=== PATIENT | female | born 2000 | race African-American/Black ===

== ENCOUNTER 2018-10-04 13:15 | Emergency (ER) | payer MEDICAID ==
--- NOTE | 2018-10-04 13:35 | ER Document Report ---
ED Medical Screen (RME) - General Chief Complaint: Abdominal Pain Stated Complaint: ABDOMINAL PAIN Time Seen by Provider: 10/04/18 13:31 - HPI Notes: 10/04/18 13:34 Patient is a 18-year-old female no significant past medical history who presents complaining of lower pelvic pains and nausea over the past 3 to 4 days. She has had some vaginal odor and discharge. No bleeding. Last menstrual period was the end of August. She is eating and drinking without difficulty, but does have decreased p.o. intake. She is urinating normally and having normal bowel movements. No surgical history to her abdomen. Denies SOTOMAYOR, fever, neck pain, URI, CP, SOB, dysuria, back pain, or rash. I have treated and performed a rapid initial assessment of this patient. A comprehensive ED assessment and evaluation of the patient, analysis of test results and completion of medical decision making process will be conducted by additional ED providers. PHYSICAL EXAMINATION: GENERAL: Well-appearing, well-nourished and in no acute distress. A&Ox4. Answers questions appropriately. LUNGS: Breath sounds clear to auscultation bilaterally and equal. No wheezes rales or rhonchi. HEART: Regular rate and rhythm without murmurs, rubs, gallops. ABDOMEN: Soft, nondistended abdomen. No guarding, no rebound. Normal bowel sounds present. No CVA tenderness bilaterally. + mild lower pelvic tenderness (cannot elicit thorough abd exam w/o bed, however). - Related Data Allergies/Adverse Reactions: Penicillins Allergy (Verified 10/04/18 13:23) Physical Exam - Vital signs Vitals: Temp Pulse Resp BP Pulse Ox 98.1 F 80 16 118/76 97 10/04/18 13:24 10/04/18 13:24 10/04/18 13:24 10/04/18 13:24 10/04/18 13:24 Course - Vital Signs Vital signs: Temp Pulse Resp BP Pulse Ox 98.1 F 80 16 118/76 97 10/04/18 13:24 10/04/18 13:24 10/04/18 13:24 10/04/18 13:24 10/04/18 13:24
[2018-10-04] MEDS ORDERED: ONDANSETRON 4 MG TAB.RAPDIS PO ONE (13:36)
[2018-10-04 14:17] LABS: ABSOLUTE EOSINOPHILS # (AUTO) 0.2 10^3/uL (0.0-0.6); ABSOLUTE LYMPHOCYTES (AUTO) 1.3 10^3/uL (0.5-4.7); ABSOLUTE MONOCYTES (AUTO) 0.4 10^3/uL (0.1-1.4); ABSOLUTE NEUT (AUTO) 2.8 10^3/uL (1.7-8.2); BASOPHILS % (AUTO) 0.9 % (0-2); EOSINOPHILS % (AUTO) 4.3 % (0-6); HEMATOCRIT 38.7 % (36.0-47.0); HEMOGLOBIN 13.2 g/dL (12.0-15.5); LYMPHOCYTES % (AUTO) 27.5 % (13-45); MEAN CORPUSCULAR HEMOGLOBIN 28.9 pg (27.0-33.4); MEAN CORPUSCULAR HGB CONC 34.2 g/dL (32.0-36.0); MEAN CORPUSCULAR VOLUME 85 fl (80-97); MONOCYTES % (AUTO) 8.1 % (3-13); PLATELET COUNT 258 10^3/uL (150-450); RED BLOOD COUNT 4.57 10^6/uL (3.72-5.28); RED CELL DISTRIBUTION WIDTH 13.2 % (11.5-14.0); SEGMENTED NEUTROPHILS % (AUTO) 59.2 % (42-78); TOTAL CELLS COUNTED % (AUTO) 100 %; WHITE BLOOD COUNT 4.8 10^3/uL (4.0-10.5)
[2018-10-04 14:24] LABS: APPEARANCE,URINE CLOUDY; BILIRUBIN,URINE NEGATIVE (NEGATIVE); COLOR,URINE AMBER; GLUCOSE, URINE NEGATIVE (NEGATIVE); KETONES,URINE TRACE mg/dL (NEGATIVE); LEUKOCYTE ESTERASE,URINE SMALL (NEGATIVE); NITRITE,URINE POSITIVE (NEGATIVE); PROTEIN,URINE NEGATIVE (NEGATIVE); URINE SPECIFIC GRAVITY 1.017
[2018-10-04 14:40] LABS: ALBUMIN 4.5 g/dL (3.5-5.0); ALKALINE PHOSPHATASE 100 U/L (38-126); ANION GAP 10 (5-19); ASPARTATE AMINO TRANSFERASE 20 U/L (14-36); BILIRUBIN,DIRECT 0.3 mg/dL (0.0-0.4); BILIRUBIN,TOTAL 1.3 mg/dL (0.2-1.3); BLOOD UREA NITROGEN 8 mg/dL (7-20); CALCIUM 10.1 mg/dL (8.4-10.2); CARBON DIOXIDE 26 mmol/L (22-30); CHLORIDE 105 mmol/L (98-107); GLUCOSE 78 mg/dL (75-110); POTASSIUM 4.4 mmol/L (3.6-5.0)
--- NOTE | 2018-10-04 16:28 | RADIOLOGY REPORT (SQ) ---
EXAM DESCRIPTION: U/S NON OB PEL TV W/DOPPLER COMPLETED DATE/TIME: 10/04/2018 4:17 pm REASON FOR STUDY: pelvic pain COMPARISON: None. TECHNIQUE: Dynamic and static grayscale images acquired of the pelvis via transvaginal approach and recorded on PACS. Additional selected color Doppler and spectral images recorded. LIMITATIONS: None. FINDINGS: UTERUS: Contour normal. No mass. Uterus is 7 x 4.2 x 3.2 cm in size ENDOMETRIAL STRIPE: No focal or generalized thickening. No masses. Endometrial stripe 3 mm in thickn ess CERVIX: No nabothian cysts. Closed, 2 cm in length. RIGHT OVARY AND DOPPLER: Normal size, right ovary 4 x 2.6 x 1.9 cm in size. No worrisome masses. Norm al arterial vascular flow without evidence for torsion. LEFT OVARY AND DOPPLER: Normal size, 3.5 x 2.7 x 2.2 cm in size. No worrisome masses. 15 mm left ova jose luis follicle. Normal arterial vascular flow without evidence for torsion. FREE FLUID: None noted. OTHER: No other significant finding. IMPRESSION: NORMAL TRANSVAGINAL PELVIC ULTRASOUND. TECHNICAL DOCUMENTATION: JOB ID: [id number] [employer]- All Rights Reserved Rev Reading location - IP/workstation name: [email or web address]
--- NOTE | 2018-10-04 17:07 | ER Document Report ---
ED General - General Chief Complaint: Abdominal Pain Stated Complaint: ABDOMINAL PAIN Time Seen by Provider: 10/04/18 13:31 Notes: 18-year-old healthy female presents to the emergency department with chief complaint of right lower pelvic pain and nausea x3 to 4 days. She states that she also has some vaginal odor and discharge but no abnormal vaginal bleeding. LMP 09/20/2018. Her stated that they were building a privacy fence a few days ago and they jumped in a "green pool" and then did not shower afterwards and had sex. Patient is concerned she may have developed some type of infection. She denies any fevers or chills, denies headache, denies neck stiffness, denies acute shortness of breath or chest pain, denies any dysuri a/urinary frequency/urgency. - Related Data Allergies/Adverse Reactions: Penicillins Allergy (Verified 10/04/18 13:23) Past Medical History - Social History Smoking Status: Never Smoker Frequency of alcohol use: None Drug Abuse: None Family History: None Patient has suicidal ideation: No Patient has homicidal ideation: No Renal/ Medical History: Denies: Hx Peritoneal Dialysis Review of Systems - Review of Systems Constitutional: See HPI EENT: No symptoms reported Cardiovascular: See HPI Respiratory: See HPI Gastrointestinal: See HPI Genitourinary: See HPI Female Genitourinary: See HPI Musculoskeletal: No symptoms reported Skin: No symptoms reported Hematologic/Lymphatic: No symptoms reported Neurological/Psychological: No symptoms reported Physical Exam - Vital signs Vitals: Temp Pulse Resp BP Pulse Ox 98.1 F 80 16 118/76 97 10/04/18 13:24 10/04/18 13:24 10/04/18 13:24 10/04/18 13:24 10/04/18 13:24 - Notes Notes: PHYSICAL EXAMINATION: Reviewed vital signs and charting by RN GENERAL: Alert, interacts well. No acute distress. HEAD: Normocephalic, atraumatic. EYES: Pupils equal and round. Extraocular movements intact. ENT: Oral mucosa moist, tongue midline. NECK: Full range of motion. Trachea midline. LUNGS: Clear to auscultation bilaterally, no wheezes, rales, or rhonchi. No respiratory distress. HEART: Regular rate and rhythm. No murmur ABDOMEN: soft, suprapubic tenderness to palpation. No distention. Bowel sounds present EXTREMITIES: Moves all 4 extremities spontaneously. No edema, No cyanosis. PSYCH: Normal affect, normal mood. SKIN: Warm, dry, normal turgor. No rashes or lesions noted. Course - Re-evaluation Re-evalutation: 10/04/18 17:04 Patient is well-appearing and nontoxic. Urinalysis showed nitrites and the specimen appeared to be contaminated. All lab work within normal limits. Plan is to go ahead and perform a pelvic exam but patient requested a female so Yue Jett is going to complete the pelvic exam. 10/04/18 17:07 10/04/18 18:06 Yue Jett, GAS STATION MANAGER, performed pelvic exam, stated there is no discharge or cervical motion tenderness. Wet mount returned and patient has bacterial vaginosis, GC chlamydia still pending but we are not going to treat preemptively at this time. Plan is to put patient on Flagyl 500 mg p.o. every 12 hours for 7 days and nitrofurantoin 100 mg every 12 hours for 7 days that she has a penicillin allergy. She is stable for discharge. - Vital Signs Vital signs: Temp Pulse Resp BP Pulse Ox 98.1 F 80 16 118/76 97 10/04/18 13:24 10/04/18 13:24 10/04/18 13:24 10/04/18 13:24 10/04/18 13:24 - Laboratory Result Diagrams: 10/04/18 14:00 10/04/18 14:00 Laboratory results interpreted by me: 10/04/18 14:00 Urine Ketones TRACE H Urine Blood SMALL H Urine Nitrite POSITIVE H Urine Urobilinogen 2.0 H Ur Leukocyte Esterase SMALL H Discharge - Discharge Clinical Impression: Bacterial vaginosis Urinary tract infection Qualifiers: Urinary tract infection type: acute cystitis Hematuria presence: without hematuria Qualified Code(s): N30.00 - Acute cystitis without hematuria Condition: Good Disposition: HOME, SELF-CARE Additional Instructions: Your urine shows findings consistent with a urinary tract infection. Please take all the antibiotics as directed even if your symptoms have improved. Please follow-up with your primary care physician as needed. You are also being treated for bacterial vaginosis, an overgrowth of normal bacteria in the vagina. You are being sent home on an antibiotic called metronidazole. Take exactly as directed. Never drink alcohol while taking this antibiotic. Please return if you develop abdominal pain, fever greater than 101F, some vomiting, or any other symptoms that are concerning to you. Prescriptions: Metronidazole [Flagyl 500 mg Tablet] 500 mg PO BID 7 Days #14 tablet Nitrofurantoin Macrocrystal [Macrodantin] 100 mg PO Q12H 7 Days #14 capsule
[2018-10-04 17:46] LABS: T.VAGINALIS (WET MOUNT) NO TRICHOMONAS SEEN; YEAST (WET MOUNT) NO YEAST SEEN
[2018-10-04 17:47] LABS: BACTERIA (WET MOUNT) 3+ BACTERIA SEEN; EPITHELIALS (WET MOUNT) 3+ EPITHELIALS SEEN; WBCS (WET MOUNT) FEW WBCS SEEN
[2018-10-04] MEDS ORDERED: METRONIDAZOLE 500 MG TABLET PO ONE (18:02)
[2018-10-04] MEDS ORDERED: NITROFURANTOIN MONOHYD/M-CRYST 100 MG CAPSULE PO ONE (18:02)
[2018-10-04 19:12] VITALS: BP 118/80
[2018-10-04 19:14] LABS: CHLAM PCR NOT DETECTED (NOT DETECT)
== END 2018-10-04 18:30 | disposition home or self-care (01) ==
LOC: ER 13:15
DX: N76.0 Acute vaginitis (principal); B96.89 Other specified bacterial agents as the cause of diseases classified elsewhere; N30.00 Acute cystitis without hematuria; R10.2 Pelvic and perineal pain; Z88.0 Allergy status to penicillin
CPT/HCPCS: 99284; 36415; 87210; 83690; 85025; 81025; 80053; 81001; 87491; 87591; 76830; 93976; S0119

== ENCOUNTER 2018-12-05 14:49 | Emergency (ER) | payer OTHER, MEDICAID ==
--- NOTE | 2018-12-05 15:55 | ER Document Report ---
ED Medical Screen (RME) - General Chief Complaint: Abdominal Pain Stated Complaint: ABDOMINAL PAIN Time Seen by Provider: 12/05/18 15:54 Notes: Patient presents complaining of lower pelvic pain for the past week. Patient states pain will occasionally radiate to the epigastric area. Patient does complain of some nausea. Patient denies any vaginal bleeding discharge, urinary symptoms, fever, vomiting or diarrhea. I have greeted and performed a rapid initial assessment of this patient. A comprehensive ED assessment and evaluation of the patient, analysis of test results and completion of the medical decision making process will be conducted by additional ED providers. - Related Data Allergies/Adverse Reactions: Penicillins Allergy (Verified 10/04/18 13:23) Past Medical History Renal/ Medical History: Denies: Hx Peritoneal Dialysis Physical Exam - Vital signs Vitals: Temp Pulse Resp BP Pulse Ox 98.0 F 74 16 102/55 L 100 12/05/18 14:58 12/05/18 14:58 12/05/18 14:58 12/05/18 14:58 12/05/18 14:58 - Abdominal Tenderness: Tender - Lower pelvic Course - Vital Signs Vital signs: Temp Pulse Resp BP Pulse Ox 98.0 F 74 16 102/55 L 100 12/05/18 14:58 12/05/18 14:58 12/05/18 14:58 12/05/18 14:58 12/05/18 14:58
[2018-12-05 17:13] LABS: ABSOLUTE EOSINOPHILS # (AUTO) 0.2 10^3/uL (0.0-0.6); ABSOLUTE LYMPHOCYTES (AUTO) 1.6 10^3/uL (0.5-4.7); ABSOLUTE MONOCYTES (AUTO) 0.4 10^3/uL (0.1-1.4); ABSOLUTE NEUT (AUTO) 3.5 10^3/uL (1.7-8.2); BASOPHILS % (AUTO) 0.7 % (0-2); EOSINOPHILS % (AUTO) 3.2 % (0-6); HEMATOCRIT 38.2 % (36.0-47.0); HEMOGLOBIN 12.9 g/dL (12.0-15.5); LYMPHOCYTES % (AUTO) 28.3 % (13-45); MEAN CORPUSCULAR HGB CONC 33.8 g/dL (32.0-36.0); MEAN CORPUSCULAR VOLUME 86 fl (80-97); MONOCYTES % (AUTO) 6.4 % (3-13); PLATELET COUNT 257 10^3/uL (150-450); RED BLOOD COUNT 4.45 10^6/uL (3.72-5.28); RED CELL DISTRIBUTION WIDTH 13.1 % (11.5-14.0); SEGMENTED NEUTROPHILS % (AUTO) 61.4 % (42-78); TOTAL CELLS COUNTED % (AUTO) 100 %; WHITE BLOOD COUNT 5.7 10^3/uL (4.0-10.5)
[2018-12-05 17:15] LABS: APPEARANCE,URINE SLIGHTLY-CLOUDY; BILIRUBIN,URINE NEGATIVE (NEGATIVE); COLOR,URINE YELLOW; GLUCOSE, URINE NEGATIVE (NEGATIVE); KETONES,URINE 20 mg/dL (NEGATIVE); LEUKOCYTE ESTERASE,URINE NEGATIVE (NEGATIVE); NITRITE,URINE POSITIVE (NEGATIVE); PROTEIN,URINE NEGATIVE (NEGATIVE); URINE SPECIFIC GRAVITY 1.013
[2018-12-05 17:36] LABS: ALBUMIN 3.9 g/dL (3.5-5.0); ALKALINE PHOSPHATASE 73 U/L (38-126); ANION GAP 9 (5-19); ASPARTATE AMINO TRANSFERASE 17 U/L (14-36); BILIRUBIN,DIRECT 0.1 mg/dL (0.0-0.4); BILIRUBIN,TOTAL 0.7 mg/dL (0.2-1.3); BLOOD UREA NITROGEN 6 mg/dL (7-20); CALCIUM 9.7 mg/dL (8.4-10.2); CARBON DIOXIDE 24 mmol/L (22-30); CHLORIDE 104 mmol/L (98-107); GLUCOSE 106 mg/dL (75-110); POTASSIUM 4.2 mmol/L (3.6-5.0); TOTAL PROTEIN 7.1 g/dL (6.3-8.2)
[2018-12-05 18:43] LABS: CHLAM PCR NOT DETECTED (NOT DETECT)
--- NOTE | 2018-12-05 21:17 | ER Document Report ---
ED GI/ - General Chief Complaint: Abdominal Pain Stated Complaint: ABDOMINAL PAIN Time Seen by Provider: 12/05/18 21:16 Primary Care Provider: KING ADAMES MD [ACTIVE STAFF] - Follow up as needed Mode of Arrival: Ambulatory Information source: Patient, Relative Notes: HISTORY OF PRESENT ILLNESS: Patient is a 18-year-old female with no significant past medical history who presents with irregular and possibly missed menstrual cycle, but also reports lower abdominal cramping for the past few days. Location: Lower abdomen Onset: 2 to 3 days ago Provocation: Unknown, patient reports she "could be " Quality: Cramping Radiation: None Severity: Moderate Timing: Intermittent LMP: "The middle of September Associated symptoms: Denies fevers or chills, no nausea or vomiting, no vaginal bleeding or discharge REVIEW OF SYSTEMS: CONSTITUTIONAL : Denies fever or chills, no sweats. Denies recent illness. EENT: Denies eye, ear, throat, or mouth pain or symptoms. Denies nasal or sinus congestion. CARDIOVASCULAR: Denies chest pain. RESPIRATORY: Denies cough, cold, or chest congestion. Denies shortness of breath, difficulty breathing, or wheezing. GASTROINTESTINAL: Positive for abdominal pain. Denies nausea, vomiting, or diarrhea. Denies constipation. GENITOURINARY: Denies difficulty urinating, painful urination, burning, frequency, or blood in urine. Positive for irregular period, but negative for vaginal bleeding or discharge. MUSCULOSKELETAL: Denies neck or back pain or joint pain or swelling. SKIN: Denies rash or skin lesions. HEMATOLOGIC : Denies easy bruising or bleeding. LYMPHATIC: Denies swollen, enlarged glands. NEUROLOGICAL: Denies altered mental status or loss of consciousness. Denies headache. Denies weakness or paralysis or loss of use of either side. Denies problems with gait or speech. Denies sensory or motor loss. PSYCHIATRIC: Denies anxiety or stress or depression. All other systems reviewed and negative. PHYSICAL EXAMINATION: GENERAL: Well-appearing, well-nourished and in no acute distress. HEAD: Atraumatic, normocephalic. No scalp deformity, depression, or crepitance. EYES: Pupils are 3 mm and equal/round/reactive to light, extraocular movements intact, sclera anicteric, conjunctiva are normal. ENT: Nares patent bilaterally, oropharynx clear without exudates or palatal petechia. Moist mucous membranes. No tonsil hypertrophy. NECK: Normal range of motion, supple without lymphadenopathy. LUNGS: Breath sounds present, equal, and clear to auscultation bilaterally. No wheezes, rales, or rhonchi. HEART: Regular rate and rhythm without murmurs, rubs, or gallops. 2+ peripheral pulses. Normal capillary refill. ABDOMEN: Soft, minimal tenderness in the suprapubic and lower pelvic area, nondistended. Normoactive bowel sounds. No guarding, no rebound. No masses appreciated. BACK: Normal contour, no midline tenderness. Rectal exam deferred. PELVC: Deferred. EXTREMITIES: Normal range of motion, no pitting or edema. No cyanosis. NEUROLOGICAL: No focal neurological deficits. Moves all extremities spontaneously and on command. PSYCH: Normal mood, normal affect. No suicidal thoughts/ideations. No homicidal thoughts/ideations. No hallucinations. SKIN: Warm, dry, normal turgor, no rashes or lesions noted. ASSESSMENT AND PLAN: This patient is a 18-year-old female who presents with irregular/missed menstrual cycle and lower abdominal tenderness but denies vaginal bleeding or discharge. 1. Will obtain labs, urine, test, and reassess. 2. Will order abdominal ultrasound if test is positive. TRAVEL OUTSIDE OF THE [place] IN LAST 30 DAYS: No - HPI Patient complains to provider of: Abdominal pain Onset: Yesterday Timing/Duration: Gradual Quality of pain: Achy, Cramping Severity at maximum: Mild Severity in ED: Mild Pain Level: 1 Context: Location: Pelvis Vaginal bleeding (Compared to normal period): None Menstrual period history: OB ultrasound done: No vitamins taken: No Sexual history: Active Exacerbated by: Denies Relieved by: Denies Similar symptoms previously: No Recently seen / treated by doctor: No - Related Data Allergies/Adverse Reactions: Penicillins Allergy (Verified 10/04/18 13:23) Past Medical History - General Information source: Patient, Relative - Social History Smoking Status: Never Smoker Chew tobacco use (# tins/day): No Frequency of alcohol use: None Drug Abuse: None Lives with: Family Family History: None Patient has suicidal ideation: No Patient has homicidal ideation: No - Past Medical History Cardiac Medical History: Reports: None Pulmonary Medical History: Reports: None EENT Medical History: Reports: None Neurological Medical History: Reports: None Endocrine Medical History: Reports: None Renal/ Medical History: Reports: None. Denies: Hx Peritoneal Dialysis Malignancy Medical History: Reports: None GI Medical History: Reports: None Musculoskeletal Medical History: Reports None Skin Medical History: Reports None Psychiatric Medical History: Reports: None Traumatic Medical History: Reports: None Infectious Medical History: Reports: None Surgical Hx: Negative Past Surgical History: Reports: None - Immunizations Immunizations up to date: Yes Hx Diphtheria, Pertussis, Tetanus Vaccination: Yes Review of Systems - Review of Systems Constitutional: No symptoms reported EENT: No symptoms reported Cardiovascular: No symptoms reported Respiratory: No symptoms reported Gastrointestinal: See HPI, Abdominal pain Genitourinary: No symptoms reported Female Genitourinary: See HPI, Musculoskeletal: No symptoms reported Skin: No symptoms reported Hematologic/Lymphatic: No symptoms reported Neurological/Psychological: No symptoms reported -: Yes All other systems reviewed and negative Physical Exam - Vital signs Vitals: Temp Pulse Resp BP Pulse Ox 98.0 F 74 16 102/55 L 100 12/05/18 14:58 12/05/18 14:58 12/05/18 14:58 12/05/18 14:58 12/05/18 14:58 Interpretation: Normal Course - Re-evaluation Re-evalutation: 12/06/18 01:29 Ultrasound shows a 5-week and 6-day single intrauterine . Blood work is otherwise unremarkable. Will discharge the patient home with strict return precautions and follow-up with RN DIALYSIS. All results were explained to and discussed with the patient, and all questions addressed and answered. The patient voices both understanding and agreeing with the plan. - Vital Signs Vital signs: Temp Pulse Resp BP Pulse Ox 98.3 F 72 18 112/60 100 12/06/18 01:37 12/06/18 01:37 12/06/18 01:37 12/06/18 01:37 12/06/18 01:37 - Laboratory Result Diagrams: 12/05/18 16:50 12/05/18 16:50 Laboratory results interpreted by me: 12/05/18 12/05/18 12/05/18 16:50 16:50 16:50 BUN 6 L Serum HCG, Qual POSITIVE H Beta HCG, Quant 17132.00 H Urine Ketones Urine Nitrite Urine Urobilinogen Urine Ascorbic Acid 12/05/18 16:55 BUN Serum HCG, Qual Beta HCG, Quant Urine Ketones 20 H Urine Nitrite POSITIVE H Urine Urobilinogen 4.0 H Urine Ascorbic Acid 40 H - Diagnostic Test Radiology reviewed: Image reviewed, Reports reviewed Discharge - Discharge Clinical Impression: Abdominal pain affecting Condition: Good Disposition: HOME, SELF-CARE Instructions: Abdominal Pain ([facility]) Additional Instructions: You have been evaluated in the Emergency Department for abdominal pain. While here, you had blood work and an ultrasound that confirmed a 5-week and 6-day and it is now safe to be discharged home. Please follow-up with your RN DIALYSIS as instructed in one week to be rechecked. Return to the Emergency Department if you experience worsening pain, vaginal bleeding, vaginal discharge, or any other concerning symptoms. Prescriptions: Pnv,Calcium 72/Iron/Folic Acid [ Plus Tablet] 1 each PO DAILY #30 tablet Referrals: KING ADAMES MD [ACTIVE STAFF] - Follow up as needed Print Language: Lithuanian
--- NOTE | 2018-12-06 00:53 | RADIOLOGY REPORT (SQ) ---
EXAM DESCRIPTION: US TRANSVAGINAL COMPLETED DATE/TME: 12/05/2018 21:12 CLINICAL HISTORY: 18 years, Female, pelvic pain COMPARISON: None. TECHNIQUE: LIMITATIONS: None. FINDINGS: There is a live 5 week 6 day IUP, based on a crown-rump length of 3 mm. Embryonic cardiac activity was measured at 100 bpm. No evidence of subchorionic hemorrhage. The uterus measures 7.4 x 4.9 x 4.8 cm. There is a 3.5 cm left ovarian corpus luteum cyst. The right ovary was not visualized. IMPRESSION: Unremarkable IUP. 3.5 cm left ovarian corpus luteum cyst. copyright 2010 [employer]- All Rights Reserved
[2018-12-06 01:38] VITALS: BP 112/60
== END 2018-12-06 01:38 | disposition home or self-care (01) ==
LOC: ER 14:49
DX: Z53.21 Procedure and treatment not carried out due to patient leaving prior to being seen by health care provider (principal); R10.9 Unspecified abdominal pain; R10.2 Pelvic and perineal pain
CPT/HCPCS: 36415; 76817; 80053; 81001; 83690; 84702; 84703; 85025; 87086; 87088; 87186; 87491; 87591; 99284

== ENCOUNTER 2019-01-20 13:32 | Emergency (ER) | payer OTHER, MEDICAID ==
--- NOTE | 2019-01-20 13:45 | ER Document Report ---
ED Medical Screen (RME) - General Chief Complaint: Nausea/Vomiting Stated Complaint: NAUSEA/VOMITING Time Seen by Provider: 01/20/19 13:44 Mode of Arrival: Medic Information source: Patient Notes: 1-year-old female presented to ED for complaint of nausea and vomiting. She is 12 weeks . 1 para 0. she states she was treated for UTI at the end of November and was started on Keflex. Patient states that she thinks the EMS Her Keflex because they told her that it had penicillin in it and she is allergic to penicillin. She states when she takes penicillin she gets hives but she has not had any hives. She states she has been throwing up off and on for about a week. She states HEAV[employer] EQUIPMENT FIELD MECHANIC has not given her any medication yet for her nausea and vomiting. I have greeted and performed a rapid initial assessment of this patient. A comprehensive ED assessment and evaluation of the patient, analysis of test results and completion of medical decision making process will be conducted by an additional ED providers. TRAVEL OUTSIDE OF THE [place] IN LAST 30 DAYS: No - Related Data Allergies/Adverse Reactions: Penicillins Allergy (Verified 10/04/18 13:23) Past Medical History Renal/ Medical History: Denies: Hx Peritoneal Dialysis - Immunizations Immunizations up to date: Yes Hx Diphtheria, Pertussis, Tetanus Vaccination: Yes Physical Exam - Vital signs Vitals: Temp Pulse Resp BP Pulse Ox 98.1 F 92 16 109/55 L 100 01/20/19 13:43 01/20/19 13:43 01/20/19 13:43 01/20/19 13:43 01/20/19 13:43 Course - Vital Signs Vital signs: Temp Pulse Resp BP Pulse Ox 98.1 F 92 16 109/55 L 100 01/20/19 13:44 01/20/19 13:44 01/20/19 13:44 01/20/19 13:44 01/20/19 13:44
[2019-01-20] MEDS ORDERED: METOCLOPRAMIDE HCL INJ/PF 10 MG/2 ML SDV IV ONE (13:50)
[2019-01-20] MEDS ORDERED: NORMAL SALINE 1000 ML 1,000 ML IV ONE ×2 (13:51→17:08)
[2019-01-20 14:55] LABS: ABSOLUTE LYMPHOCYTES (AUTO) 1.2 10^3/uL (0.5-4.7); ABSOLUTE MONOCYTES (AUTO) 0.8 10^3/uL (0.1-1.4); ABSOLUTE NEUT (AUTO) 5.8 10^3/uL (1.7-8.2); BASOPHILS % (AUTO) 0.5 % (0-2); EOSINOPHILS % (AUTO) 0.3 % (0-6); HEMATOCRIT 36.9 % (36.0-47.0); LYMPHOCYTES % (AUTO) 15.1 % (13-45); MEAN CORPUSCULAR HGB CONC 35.3 g/dL (32.0-36.0); MEAN CORPUSCULAR VOLUME 82 fl (80-97); MONOCYTES % (AUTO) 10.3 % (3-13); PLATELET COUNT 194 10^3/uL (150-450); RED BLOOD COUNT 4.49 10^6/uL (3.72-5.28); RED CELL DISTRIBUTION WIDTH 13.2 % (11.5-14.0); SEGMENTED NEUTROPHILS % (AUTO) 73.8 % (42-78); TOTAL CELLS COUNTED % (AUTO) 100 %; WHITE BLOOD COUNT 7.9 10^3/uL (4.0-10.5)
[2019-01-20 15:09] LABS: APPEARANCE,URINE SLIGHTLY-CLOUDY; BILIRUBIN,URINE NEGATIVE (NEGATIVE); COLOR,URINE YELLOW; GLUCOSE, URINE NEGATIVE (NEGATIVE); KETONES,URINE 80 mg/dL (NEGATIVE); PROTEIN,URINE 30 mg/dL (NEGATIVE); URINE SPECIFIC GRAVITY 1.013; UROBILINOGEN,URINE NEGATIVE mg/dL (<2.0)
[2019-01-20 15:15] LABS: ALBUMIN 3.8 g/dL (3.5-5.0); ALKALINE PHOSPHATASE 55 U/L (38-126); ANION GAP 17 (5-19); ASPARTATE AMINO TRANSFERASE 16 U/L (14-36); BILIRUBIN,DIRECT 0.1 mg/dL (0.0-0.4); BILIRUBIN,TOTAL 1.1 mg/dL (0.2-1.3); BLOOD UREA NITROGEN 3 mg/dL (7-20); CALCIUM 9.4 mg/dL (8.4-10.2); CARBON DIOXIDE 18 mmol/L (22-30); CHLORIDE 98 mmol/L (98-107); GLUCOSE 74 mg/dL (75-110)
[2019-01-20] MEDS ORDERED: POTASSIUM CHLORIDE 10 MEQ CAPSULE.ER PO ONE ×2 (15:26→15:52)
--- NOTE | 2019-01-20 15:38 | ER Document Report ---
HPI - HPI Time Seen by Provider: 01/20/19 13:44 Pain Level: 1 Notes: Patient is a 19-year-old female presenting to the emergency department with chief complaint of nausea and vomiting in the setting of . Patient reports she is approximately 12 weeks . She states she has had nausea and vomiting for basically the entire . She states that she is not on any nausea medications at home. She denies any diarrhea or abdominal pain. She denies any vaginal bleeding or abnormal discharge. This is her first . 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 HEAD: Atraumatic, normocephalic. EYES: Pupils equal round and reactive to light, extraocular movements intact, conjunctiva are normal. ENT: Nares patent, oropharynx clear without exudates. Moist mucous membranes. NECK: Normal range of motion, supple without lymphadenopathy LUNGS: Breath sounds clear to auscultation bilaterally and equal. No wheezes rales or rhonchi. HEART: Regular rate and rhythm without murmurs ABDOMEN: Soft, nontender, nondistended abdomen. No guarding, no rebound. No masses appreciated. Female : deferred Musculoskeletal: Normal range of motion, no pitting or edema. No cyanosis. NEUROLOGICAL: Cranial nerves grossly intact. Normal speech, normal gait. N ormal sensory, motor exams PSYCH: Normal mood, normal affect. SKIN: Warm, Dry, normal turgor, no rashes or lesions noted. - INFECTION CONTROL TRAVEL OUTSIDE OF THE [place] IN LAST 30 DAYS: No Course - Re-evaluation Re-evalutation: Patient's work-up today was relatively unremarkable. Urinalysis improved from last visit, patient had taking Keflex for a recent UTI. Patient did have a potassium 3.0, this was replaced orally here in the emergency department. She did have a few episodes of vomiting but that seemed to subside after giving Phenergan suppository. Patient will be discharged home with oral Reglan as well as Phenergan suppositories. She will have close follow-up with LASER PRINT OPERATOR. Patient and verbalized understanding and agreement with plan. They also understand ED return precautions. The patient's emergency department workup and current diagnosis were explained to the patient and or family. Follow-up instructions were provided. Medications if prescribed were discussed. Instructions for when to return to the emergency department including specific worrisome symptoms were discussed with the patient and/or family. - Vital Signs Vital signs: Temp Pulse Resp BP Pulse Ox 98.1 F 92 16 109/55 L 100 01/20/19 13:44 01/20/19 13:44 01/20/19 13:44 01/20/19 13:44 01/20/19 13:44 - Laboratory Result Diagrams: 01/20/19 14:45 01/20/19 14:45 Laboratory results interpreted by me: 01/20/19 01/20/19 14:45 14:45 Sodium 132.5 L Potassium 3.0 L* Carbon Dioxide 18 L BUN 3 L Glucose 74 L Urine Protein 30 H Urine Ketones 80 H Urine Blood SMALL H Discharge - Discharge Clinical Impression: Nausea and vomiting during Condition: Stable Disposition: HOME, SELF-CARE Additional Instructions: Please take medications as prescribed. You may use the Reglan but if you are unable to hold down the Reglan you can use the Phenergan suppositories. Please drink as much fluid as possible to stay hydrated. Follow-up with LASER PRINT OPERATOR. Return to the emergency department for any new or worsening symptoms or if you continue to vomit despite taking the appropriate medications. Prescriptions: Promethazine HCl [Phenergan 25 mg Supp.rect] 1 supp MT Q6H #12 supp.rect Metoclopramide HCl [Reglan 10 mg Tablet] 1 - 2 tab PO ASDIR PRN #25 tablet PRN Reason:
[2019-01-20] MEDS ORDERED: PROMETHAZINE HCL 25 MG SUPP.RECT PR ONE (15:51)
--- NOTE | 2019-01-20 16:39 | RADIOLOGY REPORT (SQ) ---
EXAM DESCRIPTION: U/S [id number] TRNABD 1GES W/ODOP COMPLETED DATE/TIME: 01/20/2019 4:22 pm REASON FOR STUDY: 12 weeks abdominal pain NV COMPARISON: None. TECHNIQUE: Transabdominal static and realtime grayscale images acquired of the pelvis. Additional se lected spectral and color Doppler images recorded. All images stored on PACs. bHCG: Pending. CLINICAL DATES: LMP 10/23/2018. SABINE 07/30/2019. EGA 12 weeks 5 days. LIMITATIONS: None. FINDINGS: FETUS: Single Living intrauterine . ULTRASOUND EGA: 12 weeks 5 days. ULTRASOUND SABINE: 07/30/2019. FHR: 162 beats per minute. SURVEY: Too early to assess. AMNIOTIC FLUID: Too early to assess. PLACENTA: Too early to assess. SUBCHORIONIC BLEED: No. UTERUS: 8.3 x 8.4 x 8.8 cm. CERVICAL LENGTH: 3.1 cm. Closed. RIGHT ADNEXA: Unable to visualize the right ovary. There is no right adnexal mass. LEFT ADNEXA: The left ovary measures 3.5 x 2.4 x 4.2 cm. There is a cystic lesion within the left ov carmen that measures 2.7 x 2.4 x 2.8 cm. There is no free fluid in the right adnexum. FREE FLUID: None. OTHER: No other finding. IMPRESSION: Single live intrauterine gestation. EGA 12 weeks 5 days based on LMP. Trimester of : First trimester - 0 to 13 weeks. TECHNICAL DOCUMENTATION: JOB ID: [id number] [employer]- All Rights Reserved Reading location - IP/workstation name: [email or web address]
[2019-01-20 18:42] VITALS: BP 106/59
== END 2019-01-20 18:45 | disposition home or self-care (01) ==
LOC: ER 13:32
DX: O21.9 Vomiting of pregnancy, unspecified (principal); Z3A.00 Weeks of gestation of pregnancy not specified
CPT/HCPCS: 99284; 96361; 96374; 86900; 86901; 36415; 84702; 85025; 80053; 81001; 76801; J2765; J3490; J7030